=== PATIENT | female | born 1935 | race African-American/Black ===

== ENCOUNTER 2017-11-30 05:55 | Emergency (ER) | payer OTHER ==
[~2017-11-30] VITALS: Ht 165.1 cm; Wt 68.0 kg
[2017-11-30] MEDS ORDERED: FAMOTIDINE 20MG/2ML VIAL IV STA (06:27)
[2017-11-30] MEDS ORDERED: ONDANSETRON HCL 4MG/2ML INJ IV STA (06:27)
[2017-11-30] MEDS ORDERED: MORPHINE SULFATE 4 MG/ML CPJ (NOT FOR IM USE) IV STA (06:27)
[2017-11-30 07:26] LABS: HEMATOCRIT. 40.1 % (36.0-48.0); HEMOGLOBIN. 13.9 g/dL (12.0-16.0); MEAN CORPUSCULAR HEMOGLOBIN 31.4 pg (28.0-32.0); MEAN CORPUSCULAR VOLUME 90.7 fL (81.0-99.0); MEAN PLATELET VOLUME 8.3 fl (7.4-10.4); PLATELET 214 x1000/uL (130-400); RED BLOOD CELL COUNT 4.42 mill/uL (4.2-5.4); RED CELL DISTRIBUTION WIDTH 13.9 % (11.6-14.6)
[2017-11-30 07:35] LABS: INR 1.1; PARTIAL THROMBOPLASTIN TIME 25.2 sec (23.4-31.0); PROTHROMBIN TIME 10.7 sec (9.1-11.1)
[2017-11-30 07:56] LABS: CHLORIDE 108 mEq/L (98-107)
[2017-11-30 07:59] LABS: BG BASE EXCESS -2.3 mmol/L (-2.0-2.0); BG CARBOXYHEMOGLOBIN 1.1 % (0.5-1.5); BG DEOXYHEMOGLOBIN 7.9 % (0.0-5.0); BG FRACTION INSPIRED OXYGEN 21; BG HCO3 ACT 21.8 mmol/L (22.0-26.0); BG METHEMOGLOBIN 0.6 % (0.0-1.5); BG OXYHEMOGLOBIN 90.4 % (94.0-97.0); BG PCO2 35.5 mmHg (35.0-45.0); BG PH 7.406 (7.350-7.450); BG PO2 62.3 mmHg (75.0-100.0); BG SAMPLE SITE A-LINE; BG TOTAL HEMOGLOBIN 14.3 g/dL (12.0-18.0); BG VENT MODE ROOM AIR
[2017-11-30 08:27] LABS: PLATELET ESTIMATE NORMAL
[2017-11-30] MEDS ORDERED: MORPHINE SULFATE 2 MG/ML CPJ (NOT FOR IM USE) IV ONE (08:45)
[2017-11-30 10:45] VITALS: BP 158/68
== END 2017-11-30 11:09 | disposition short-term general hospital (02) ==
LOC: ER 05:55
DX: R10.12 Left upper quadrant pain (principal); J06.9 Acute upper respiratory infection, unspecified; D72.829 Elevated white blood cell count, unspecified; R73.9 Hyperglycemia, unspecified; G12.21 Amyotrophic lateral sclerosis; K57.30 Diverticulosis of large intestine without perforation or abscess without bleeding; Q61.01 Congenital single renal cyst; Z90.710 Acquired absence of both cervix and uterus
CPT/HCPCS: 36415; 36600; 71045; 74176; 80053; 82375; 82805; 83690; 83880; 84484; 85025; 85610; 85730; 93005; 96374; 96375; 96376; 99285; J2270; J2405; J3490